=== PATIENT | female | born 1960 | race Caucasian/White ===

== ENCOUNTER 2016-12-05 15:10 | Inpatient (IN) | payer OTHER ==
[2016-12-05] MEDS ORDERED: HYDROmorphone 1 MG INJECTION IV ONE (15:24)
[2016-12-05] MEDS ORDERED: METHYLPREDNISOLONE 125 MG/2 ML VIAL IV ONE (15:48)
[2016-12-05] MEDS ORDERED: Albuterol/Ipratropium Neb 3 ML NEB NEB ONE (15:48)
[2016-12-05 16:11] LABS: AUTOMATED BASOPHIL 0.6 % (0-2); AUTOMATED EOSINOPHIL 0.3 % (0-5); AUTOMATED LYMPH 17.2 % (17-44); AUTOMATED MONOCYTE 7.9 % (3-10); MPV 7.6 fL (7.4-10.4)
[2016-12-05 16:26] LABS: LEUKOCYTES/URINE TRACE (NEGATIVE); NITRITE/URINE NEG (NEGATIVE); RBC/URINE 0-2 (0-5); URINE OCCULT BLOOD NEG (NEG/TRACE); WBC/URINE 0-2 (0-5)
[2016-12-05] MEDS ORDERED: ASPIRIN (CHEWABLE) 81 MG TAB PO ONE (16:30)
[2016-12-05] MEDS ORDERED: LORAZEPAM 2 MG/ML VIAL IV ONE (16:30)
[2016-12-05 16:34] LABS: BLOOD UREA NITROGEN 22 MG/DL (7-17); CALCIUM 10.1 MG/DL (8.4-10.2); CALCULATED OSMOLALITY 269 MOs/Kg (270-290); CHLORIDE 99 mEq/L (98-107); CRP-QUANTITATIVE 7.2 mg/L (<10.0); GLUCOSE 102 MG/DL (70-99); SODIUM LEVEL 138 mEq/L (137-146); TOTAL PROTEIN 8.1 G/DL (6.3-8.2)
[2016-12-05 16:41] LABS: CPK TOTAL WITH POSSIBLE MB 232 IU/L (30-134)
[2016-12-05 16:56] LABS: CPKMB 3.9 ng/mL (0-4.5)
--- NOTE | 2016-12-05 17:03 | EDPRACDOC ---
- General Information Chief Complaint: Chest Pain Stated Complaint: ALEX WHIPPLE Time Seen by Provider: 12/05/16 15:24 Information Source: Patient, Family Mode of Arrival: Car Home Medications: Home Medications Levofloxacin [Levaquin] 750 mg PO .DAILY X 10D 06/24/16 Albuterol/Ipratropium Neb [Duoneb] 3 ml NEB Q6 06/27/16 Albuterol/Ipratropium Neb [Duoneb] 3 ml NEB RTQ6 #100 nebu 06/27/16 Aspirin 81 mg PO DAILYWM #100 tablet 06/27/16 Atorvastatin Calcium [Lipitor] 40 mg PO DAILY 06/27/16 Atorvastatin Calcium [Lipitor] 40 mg PO DAILY #30 tablet 06/27/16 Azithromycin [Zithromax Tri-Ion] 500 mg PO DAILY #3 tablet 06/27/16 Benzonatate [Tessalon] 100 mg PO TID PRN #30 capsule 06/27/16 Carvedilol [Coreg] 3.125 mg PO BID #60 tablet 06/27/16 Cefdinir [Omnicef] 300 mg PO BID #14 capsule 06/27/16 Lisinopril/Hydrochlorothiazide [Lisinopril-Hctz 10-12.5 mg Tab] 1 tab PO DAILY # 30 06/27/16 Prednisone [Sterapred DS 10 mg/12 day pack] 48 tab PO DIR #1 pack 06/27/16 Probiotic Blend [Tammie Q] 1 tab PO BIDLS #20 tablet 06/27/16 Allergies/Adverse Reactions: Allergies Allergy/AdvReac Type Severity Reaction Status Date / Time No Known Allergies Allergy Verified 12/05/16 15:19 - History of Present Illness Onset: 2 days Chest Pain Location: Reports: Substernal Pain Radiation: Reports: None Symptoms Occur: Reports: Gradually, At Rest, With light exertion Cardiac Risk Factors: Reports: Smoker (FORMER) Cardiac History of: Reports: None. Denies: Similar Pain in Past PE Risk Factors: Reports: None Prehospital Care: Reports: None Pain Came On: Reports: Gradually Pain Status: Present Now Pain Description: Reports: Pressure, Aching Pain Worsens With: Reports: Nothing Pain Improves With: Reports: Nothing Associated Signs and Symptoms: Reports: SOB, Palpitations (HEART RACING), Other (NEAR PANIC B/C OF FEELING). Denies: Diaphoretic, Abdominal Pain, Nausea, Vomiting, Calf Pain or Swelling, Chest Rash Other History: COUGH, RUNNY NOSE, SINUS PRESSURE AND PAIN, LEFT EAR STOPPED UP FOR APPROXIMATELY 8 DAYS. HAS SEEN URGENT CARE PLACED ON CEFDINIR. DID NOT IMPROVE. HAS SEEN PCP AND BEEN PLACED ON MOXIFLOXACIN. ALSO TAKE CHERTUSSIN AC. ED Past Medical History - History Reviewed Yes Nurses notes reviewed and agree except as marked - Patient Medical History Cardiac History: Reports: Hypertension (diagnosed urgent care 06/24/16.), Hypercholesterolemia Psychological History: Denies: Depression, Substance Use Disorder - Social Medical History Smoking Status: Never smoker Social History: Denies: Substance Use Disorder EDM Review of Systems - Review of Systems ROS Negative Except as Marked: Yes All systems reviewed and were negative except as marked - Physical Exam Constitutional: Alert (Awake), No apparent distress Oriented to: Time, Person, Place Last recorded Vital Signs: Last Vital Signs Temp 97.6 F 12/05/16 15:19 Pulse 74 12/05/16 16:36 Resp 21 12/05/16 16:36 BP 127/69 12/05/16 16:36 Pulse Ox 97 12/05/16 16:36 Oxygen Pulse Oxygen Saturation 97 O2 Device Room Air Oxygen Flow Rate Fraction of Inspired Oxygen ( FIO2) - HEENT Head: Normal ( normocephalic) Eye Exam: Normal (PERRL, EOMI, Sclera white) Oropharynx: Normal (Pharynx:Moist without exudate,Gums-no swelling) Tympanic Membrane: Normal ENT EAC: Normal TMJ: Normal Nose: No Symptoms Reported (septum midline) Neck: Normal (FROM, trachea at midline) - Respiratory/Cardiovascular Respiratory: Normal - CTA (BBS clear to auscultation without adventitious sounds ), Diminished. negative: Accessory Muscle Use, Rales, Rhonchi, Tachypnea, Wheezes Cardiovascular: Normal (RRR without murmur, gallop or rub) - GI Auscultation: Normal (NABS) Palpation: Normal (Soft,No rebound or guarding, non distended) Tenderness: Non tender Burgess's Sign: Negative - Musculoskeletal Back: Normal (Non-Tender) Extremities: Normal (Normal tone, Pulses 2+ No cyanosis or edema, FROM) - Integumentary Skin: Normal, Warm, Dry Lymphatics: Normal (no adenopathy) - Neurologic Memory Impaired: Normal Motor Function: Normal (Normal tone, Pulses 2+ No cyanosis or edema, FROM) Cranial Nerve: Normal (CN II-X11 intact sensation, strength 5/5) Cerebellar: Normal Mood Description: Normal Perception: Normal ED Chest Pain Exam - Respiratory/Cardiovascular Respiratory: Normal - CTA (clear to auscultation without adventitious sounds) Cardiovascular/Chest: Normal (RRR without murmur, gallop or rub) Radial Pulse: Normal Femoral Pulse: Normal Pedal Pulse: Normal Carotid Arteries: Normal Edema: 5 Chest Palpation: Normal (No chest tenderness) - Action ASA given in the ED: Yes - Results 12/05/16 15:57 12/05/16 15:57 WBC 11.6 xk/uL (3.8-10.8) H 12/05/16 15:57 RBC 4.40 xM/uL (4.20-5.40) 12/05/16 15:57 Hgb 13.1 g/dL (12.0-16.0) 12/05/16 15:57 Hct 39.6 % (36-47) 12/05/16 15:57 MCV 90 fL (81-99) 12/05/16 15:57 MCH 29.7 pg (27-32) 12/05/16 15:57 MCHC 33.0 g/dl (33-36) 12/05/16 15:57 RDW 14.0 % (11.5-14.5) 12/05/16 15:57 Plt Count 347 xk/uL (130-400) 12/05/16 15:57 MPV 7.6 fL (7.4-10.4) 12/05/16 15:57 Neut % (Auto) 74.0 % (45-76) 12/05/16 15:57 Lymph % (Auto) 17.2 % (17-44) 12/05/16 15:57 Grand % (Auto) 7.9 % (3-10) 12/05/16 15:57 Eos % (Auto) 0.3 % (0-5) 12/05/16 15:57 Baso % (Auto) 0.6 % (0-2) 12/05/16 15:57 Absolute Neuts (auto) 8.58 xk/uL (1.7-8.2) H 12/05/16 15:57 Absolute Lymphs (auto) 1.97 xk/uL (0.65-4.75) 12/05/16 15:57 Sodium 138 mEq/L (137-146) 12/05/16 15:57 Potassium 3.6 mEq/L (3.5-5.1) 12/05/16 15:57 Chloride 99 mEq/L (98-107) 12/05/16 15:57 Carbon Dioxide 25 mMOL/L (22-33) 12/05/16 15:57 Anion Gap 18 mEq/L (8-16) H 12/05/16 15:57 BUN 22 MG/DL (7-17) H 12/05/16 15:57 Creatinine 1.20 MG/DL (0.52-1.04) H 12/05/16 15:57 Estimated GFR (MDRD) 46 mL/min (>=60) L 12/05/16 15:57 Glucose 102 MG/DL (70-99) H 12/05/16 15:57 Calculated Osmolality 269 MOs/Kg (270-290) L 12/05/16 15:57 Lactic Acid 1.0 mEq/L (0.7-2.1) 12/05/16 15:57 Calcium 10.1 MG/DL (8.4-10.2) 12/05/16 15:57 Total Bilirubin 0.7 MG/DL (0.2-1.3) 12/05/16 15:57 AST 25 IU/L (14-36) 12/05/16 15:57 ALT 45 IU/L (9-52) 12/05/16 15:57 Alkaline Phosphatase 79 IU/L (38-126) 12/05/16 15:57 Creatine Kinase 232 IU/L (30-134) H 12/05/16 15:57 CK-MB (CK-2) 3.9 ng/mL (0-4.5) 12/05/16 15:57 Troponin I < 0.01 ng/mL (<.04) 12/05/16 15:57 C-Reactive Prot, Quant 7.2 mg/L (<10.0) 12/05/16 15:57 Dlh-N-Nzxfsgpffze Pept 166 pg/mL (0-900) 12/05/16 15:57 Total Protein 8.1 G/DL (6.3-8.2) 12/05/16 15:57 Albumin 4.5 G/DL (3.5-5.0) 12/05/16 15:57 Urine Color Yellow 12/05/16 15:25 Urine Clarity Clear 12/05/16 15:25 Urine pH 7.0 (5.0-8.0) 12/05/16 15:25 Ur Specific [place] 1.010 (1.003-1.035) 12/05/16 15:25 Urine Protein Neg (NEG/TRACE) 12/05/16 15:25 Urine Glucose (UA) Neg (NEGATIVE) 12/05/16 15:25 Urine Ketones Neg (NEGATIVE) 12/05/16 15:25 Urine Occult Blood Neg (NEG/TRACE) 12/05/16 15:25 Urine Nitrite Neg (NEGATIVE) 12/05/16 15:25 Urine Bilirubin Neg (NEGATIVE) 12/05/16 15:25 Urine Urobilinogen <2.0 MG/DL (0-1) 12/05/16 15:25 Ur Leukocyte Esterase Trace (NEGATIVE) H 12/05/16 15:25 Urine RBC 0-2 (0-5) 12/05/16 15:25 Urine WBC 0-2 (0-5) 12/05/16 15:25 Ur Epithelial Cells 1+ 12/05/16 15:25 Urine Bacteria Few (NEG/FEW) 12/05/16 15:25 Hyaline Casts 2-5 (0-2) H 12/05/16 15:25 Urine Mucus Occ (NEG/OCC) 12/05/16 15:25 Lab Results 12/05/16 12/05/16 12/05/16 15:57 15:57 15:57 WBC 11.6 H RBC 4.40 Hgb 13.1 Hct 39.6 MCV 90 MCH 29.7 MCHC 33.0 RDW 14.0 Plt Count 347 MPV 7.6 Neut % (Auto) 74.0 Lymph % (Auto) 17.2 Grand % (Auto) 7.9 Eos % (Auto) 0.3 Baso % (Auto) 0.6 Absolute Neuts (auto) 8.58 H Absolute Lymphs (auto) 1.97 Sodium 138 Potassium 3.6 Chloride 99 Carbon Dioxide 25 Anion Gap 18 H BUN 22 H Creatinine 1.20 H Estimated GFR (MDRD) 46 L Glucose 102 H Calculated Osmolality 269 L Lactic Acid 1.0 Calcium 10.1 Total Bilirubin 0.7 AST 25 ALT 45 Alkaline Phosphatase 79 Creatine Kinase 232 H CK-MB (CK-2) 3.9 Troponin I < 0.01 C-Reactive Prot, Quant 7.2 Gti-L-Gxrptzagicz Pept 166 Total Protein 8.1 Albumin 4.5 Urine Color Urine Clarity Urine pH Ur Specific [place] Urine Protein Urine Glucose (UA) Urine Ketones Urine Occult Blood Urine Nitrite Urine Bilirubin Urine Urobilinogen Ur Leukocyte Esterase Urine RBC Urine WBC Ur Epithelial Cells Urine Bacteria Hyaline Casts Urine Mucus 12/05/16 15:25 WBC RBC Hgb Hct MCV MCH MCHC RDW Plt Count MPV Neut % (Auto) Lymph % (Auto) Grand % (Auto) Eos % (Auto) Baso % (Auto) Absolute Neuts (auto) Absolute Lymphs (auto) Sodium Potassium Chloride Carbon Dioxide Anion Gap BUN Creatinine Estimated GFR (MDRD) Glucose Calculated Osmolality Lactic Acid Calcium Total Bilirubin AST ALT Alkaline Phosphatase Creatine Kinase CK-MB (CK-2) Troponin I C-Reactive Prot, Quant Epp-N-Brekiuvwixu Pept Total Protein Albumin Urine Color Yellow Urine Clarity Clear Urine pH 7.0 Ur Specific [place] 1.010 Urine Protein Neg Urine Glucose (UA) Neg Urine Ketones Neg Urine Occult Blood Neg Urine Nitrite Neg Urine Bilirubin Neg Urine Urobilinogen <2.0 Ur Leukocyte Esterase Trace H Urine RBC 0-2 Urine WBC 0-2 Ur Epithelial Cells 1+ Urine Bacteria Few Hyaline Casts 2-5 H Urine Mucus Occ Laboratory Results - last 24 hr 12/05/16 12/05/16 12/05/16 15:25 15:57 15:57 WBC RBC Hgb Hct MCV MCH MCHC RDW Plt Count MPV Neut % (Auto) Lymph % (Auto) Grand % (Auto) Eos % (Auto) Baso % (Auto) Absolute Neuts (auto) Absolute Lymphs (auto) Sodium 138 Potassium 3.6 Chloride 99 Carbon Dioxide 25 Anion Gap 18 H BUN 22 H Creatinine 1.20 H Estimated GFR (MDRD) 46 L Glucose 102 H Calculated Osmolality 269 L Lactic Acid 1.0 Calcium 10.1 Total Bilirubin 0.7 AST 25 ALT 45 Alkaline Phosphatase 79 Creatine Kinase 232 H CK-MB (CK-2) 3.9 Troponin I < 0.01 C-Reactive Prot, Quant 7.2 Ssm-I-Zgwsvdkatvs Pept 166 Total Protein 8.1 Albumin 4.5 Urine Color Yellow Urine Clarity Clear Urine pH 7.0 Ur Specific [place] 1.010 Urine Protein Neg Urine Glucose (UA) Neg Urine Ketones Neg Urine Occult Blood Neg Urine Nitrite Neg Urine Bilirubin Neg Urine Urobilinogen <2.0 Ur Leukocyte Esterase Trace H Urine RBC 0-2 Urine WBC 0-2 Ur Epithelial Cells 1+ Urine Bacteria Few Hyaline Casts 2-5 H Urine Mucus Occ 12/05/16 15:57 WBC 11.6 H RBC 4.40 Hgb 13.1 Hct 39.6 MCV 90 MCH 29.7 MCHC 33.0 RDW 14.0 Plt Count 347 MPV 7.6 Neut % (Auto) 74.0 Lymph % (Auto) 17.2 Grand % (Auto) 7.9 Eos % (Auto) 0.3 Baso % (Auto) 0.6 Absolute Neuts (auto) 8.58 H Absolute Lymphs (auto) 1.97 Sodium Potassium Chloride Carbon Dioxide Anion Gap BUN Creatinine Estimated GFR (MDRD) Glucose Calculated Osmolality Lactic Acid Calcium Total Bilirubin AST ALT Alkaline Phosphatase Creatine Kinase CK-MB (CK-2) Troponin I C-Reactive Prot, Quant Gmz-V-Omzkzgatxag Pept Total Protein Albumin Urine Color Urine Clarity Urine pH Ur Specific [place] Urine Protein Urine Glucose (UA) Urine Ketones Urine Occult Blood Urine Nitrite Urine Bilirubin Urine Urobilinogen Ur Leukocyte Esterase Urine RBC Urine WBC Ur Epithelial Cells Urine Bacteria Hyaline Casts Urine Mucus Laboratory Results 12/05/16 15:57 12/05/16 15:57 - EKG EKG #1 EKG Time: 15:18 -: Yes EKG interpreted by me Rate: bpm: 93 [place]: Normal Rhythm: NSR Block: None Hypertrophy: None ST: New, Inf, Lat, Ischemia Comparison: 06/25/16 (NEW INF AND LAT ST DEP) EKG #2 EKG Time: 16:45 -: Yes EKG interpreted by in Rate: bpm: 69 [place]: Normal Rhythm: NSR Block: None Hypertrophy: None ST: Nonsp Comments: IMPROVED - Diagnostic Imaging Chest Image interpreted by: Radiologist Patient Name: JOSE BUCKNER LOC: ED : 1960 AGE: 56 Order Date:12/05/16 Date of Service:06/14 Report # [id number] Ord Physician: Gloria Díaz MD Exam # [id number] Emergency Physician: Gloria Díaz MD Exam(s): [id number] RAD/DG CHEST 2V CLINICAL DATA: Shortness of breath cough congestion for several days EXAM: CHEST 2 VIEW COMPARISON: 06/24/2016 FINDINGS: Heart size and vascular pattern are normal. No infiltrate consolidation effusion or pneumothorax. IMPRESSION: No active cardiopulmonary disease. Electronically Signed By: Kaleb Bauman M.D. On: 12/05/2016 17:01 Electronically Signed By: Kaleb Bauman MD Electronically Signed Date/Time: 704 Dictate Date/Time: 12/05/161699 Technologist: Cherelle Powell Transcribed By: Zenaida Transcribed Date/Time: 12/05/16 170 - Departure Condition: Stable Final Diagnosis: Abnormal EKG Chest pain Qualifiers: Chest pain type: other chest pain Qualified Code(s): R07.89 - Other chest pain Dyspnea Qualifiers: Dyspnea type: shortness of breath Qualified Code(s): R06.02 - Shortness of breath Instructions: Chest Pain (ED), Chest Wall Pain Education/Counseling Given To: Patient, Family Member Education/Counseling Given Regarding: Diagnosis, Treatment, Prognosis Referrals: Nikolai Gant MD [Primary Care Provider] - One Week Decision to Admit Time: 17:06 Decision to admit date: 12/05/16 Decision to admit: from ED - Physician Consulted Hospitalist Time Called: 17:06 Provider Called: Nilson Molina Time [employer] Team Leader Returned Call: 17:06
[2016-12-05] MEDS ORDERED: Enoxaparin 1 mg per kg per dose SQ ONE (17:06)
[2016-12-05] MEDS ORDERED: ACETAMINOPHEN 325 MG SUPP PR PRN (17:20)
[2016-12-05] MEDS ORDERED: BENZONATATE 100 MG PERLES PO PRN (17:20)
[2016-12-05] MEDS ORDERED: SENNA CONCENTRATE TAB PO PRN (17:20)
[2016-12-05] MEDS ORDERED: ACETAMINOPHEN 325 MG/TAB TABLET PO PRN (17:20)
[2016-12-05] MEDS ORDERED: TUSSIONEX 5 ML ORAL SYRINGE PO PRN (17:20)
[2016-12-05] MEDS ORDERED: BISACODYL 10 MG SUPP PR PRN (17:20)
[2016-12-05] MEDS ORDERED: PROMETHAZINE 25 MG/ML VIAL IV PRN (17:20)
--- NOTE | 2016-12-05 17:54 | HISTPHYS ---
- Chief Complaint Dry cough slight fever and chest pain with cough - History of Present Illness Patient very pleasant 56-year-old white female who comes in the emergency room today complaining of dry cough, shortness breath, excessive belching, rapid heartbeat, sinus infection, chest tightness palpitations mild feverish sensation and multiple recent antibiotics without any improvement of her symptomatology. She states she has had some nasal drainage of thick white greenish attended material from the back of her sinuses down into her chest causing her to have a cough. She had a low-grade fever and had seen Dr. Gant who started her on Ceftin which she took for 4 days without any improvement she was then started on moxifloxacin for the next several days without any improvement whatsoever. She was also recently given Afrin followed by Flonase to help open up her sinuses. She states that the Afrin helped a little but unfortunately Flonase had no affect but states that the Flonase was started after the Afrin course had ceased. She tells me a week ago she had a fever over 100 F. she also says last 2 nights she had pacing in the chest. Belching has been occurring for the past several months which prompted her to see Dr. Momin who performed a colonoscopy an EGD reportedly negative. I took care of her last year in May with pneumonia and she states lot of her symptoms are similar that which she experience then. - Medical History Cardiac History: Reports: No Significant History, Hypertension (diagnosed urgent care 06/24/16.), Hypercholesterolemia Respiratory History: Reports: Emphysema (Emphysema noted on chest x-ray by me) GI/ History: Reports: No Significant History Musculoskeletal History: Reports: No Significant History Systemic History: Reports: No Significant History Neurological History: Reports: No Significant History Psychological History: Denies: Depression, Substance Use Disorder - Medictions/Allergies Allergies No Known Allergies Allergy (Verified 12/05/16 15:19) Current Medication List: Reviewed Home Medications Levofloxacin [Levaquin] 750 mg PO .DAILY X 10D 06/24/16 Albuterol/Ipratropium Neb [Duoneb] 3 ml NEB Q6 06/27/16 Albuterol/Ipratropium Neb [Duoneb] 3 ml NEB RTQ6 #100 nebu 06/27/16 Aspirin 81 mg PO DAILYWM #100 tablet 07/30/16 Atorvastatin Calcium [Lipitor] 40 mg PO DAILY 06/27/16 Atorvastatin Calcium [Lipitor] 40 mg PO DAILY #30 tablet 06/27/16 Azithromycin [Zithromax Tri-Ion] 500 mg PO DAILY #3 tablet 06/27/16 Benzonatate [Tessalon] 100 mg PO TID PRN #30 capsule 06/27/16 Carvedilol [Coreg] 3.125 mg PO BID #60 tablet 06/27/16 Cefdinir [Omnicef] 300 mg PO BID #14 capsule 06/27/16 Lisinopril/Hydrochlorothiazide [Lisinopril-Hctz 10-12.5 mg Tab] 1 tab PO DAILY # 30 06/27/16 Prednisone [Sterapred DS 10 mg/12 day pack] 48 tab PO DIR #1 pack 06/27/16 Probiotic Blend [Tammie Q] 1 tab PO BIDLS #20 tablet 06/27/16 - Family History Reports: No Significant History (She is adopted and has no family history that she is aware of) - Social History Travel Outside of [place] in the Last 3 Months?: No Lives: with Spouse Smoking Status: Never smoker Social History: Denies: Alcohol Use, Substance Use Disorder - Review of Systems Constitutional: Chills, Fever, Fatigue Eyes: Pain (Fullness in her sinuses and postnasal drip) Ears: Pain (Fullness in her sinuses and postnasal drip) Nose: Congestion, Other (Sinus infection symptoms) Mouth: No Symptoms Reported (No oropharyngeal lesions or erythema) Throat/Neck: No Symptoms Reported (No throat pain or swelling.No oropharyngeal lesions or erythema.) Respiratory: Cough (Dry nonproductive). negative: Sputum Cardiovascular: Chest Pain (Pleuritic), Palpitations Gastrointestinal: Other (Excessive belching prompting the EGD and colonoscopy [address] Momin which were reportedly negative) Genitourinary: No Symptoms Reported (No dysuria or hematuria.) Neurological: No Symptoms Reported (No headache, dizziness, seizures, or focal weakness.) Musculoskeletal:: No Symptoms Reported Integumentary: No Symptoms Reported (no rashes or lesions) Allergic/Immunologic: No Symptoms Reported (no rashes or lesions) Hematologic: No Symptoms Reported (No chronic anemia, bleeding, or easy bruising.), Other (Lymphatics- no lymph node swelling or pain.) Endocrine: No Symptoms Reported (No thyroid issues, polyuria, or polydipsia.) Psychiatric: No Symptoms Reported (Fully oriented, with normal and appropriate affect.) - Physical Exam Vital Signs: Initial Vitals Temperature 97.6 F 12/05/16 15:19 Pulse Rate 97 12/05/16 15:19 Respiratory Rate 22 12/05/16 15:19 Blood Pressure 173/80 12/05/16 15:19 Pulse Oxygen Saturation 94 12/05/16 15:19 Constitutional: Alert (Awake, Fully oriented. Normal and appropriate affect.Well appearing. Well nourished.), No apparent distress Oriented to: Time, Person, Place - HEENT Head: Normal (normocephalic, atraumatic.), Other (No cervical lymphadenopathy. No supraclavicular lymphadenopathy. Neck: No palpable mass, supple , trachea midline.) Eye: Normal (pupils equal, reactive to light, and round; EOMI, Sclera white) Oropharynx: Normal (Pharynx: Moist without exudate,Gums-no swelling, No oropharyngeal lesions or erythema, Mucous membranes are dry.) ENT EAC: Normal (No oropharyngeal lesions or erythema. Mucous membranes are dry. ) TMJ: Normal Nose: No Symptoms Reported (septum midline, Nares patent, without discharge or bleeding.) Respiratory: Normal - CTA (Clear to auscultation bilaterally. No wheezing, rales , rhonchi. Chest wall movements are symmetric. No use of accessory muscles to breathe.) Cardiovascular: Normal (RRR , Normal S1, S2. No murmurs, rubs, or gallops. PMI non-displaced. Carotids: no carotid bruits. No bradycardia or tachycardia. DP pulses 2+ bilaterally.) - GI Auscultation: Normal (normal active sounds) Palpation: Normal (Soft,non distended,nontender. No hepatosplenomegaly.) Tenderness: Non tender (No rebound or guarding) Burgess's Sign: Negative - Musculoskeletal Back: Normal (Non-Tender) Extremities: Normal (Normal tone, DP pulses 2+ bilaterally, No cyanosis or edema bilaterally, FROM bilaterally.) Spine: non-tender. negative: muscle spasm, painful range of motion - Integumentary Skin: Normal (Clean, dry, and intact. No rashes. No lesions.) Lymphatics: Normal (No cervical lymphadenopathy. No supraclavicular lymphadenopathy.) - Neurologic Memory Impaired: Normal Motor Function: Normal (Motor 5/5 throughout.Normal tone, Pulses 2+ No cyanosis or edema, FROM) Cranial Nerve: Normal (CN II-XII intact sensation, strength 5/5) Cerebellar: Normal (Babinski: toes downgoing bilaterally. Intact Finger to nose. Sensory grossly intact to light touch. Intact rapid alternating movements bilaterally. No pronator drift.) Mood Description: Normal (Fully oriented. Normal and appropriate affect.) Thought: Coherent Perception: Normal (Normal and appropriate affect.) - Focused CV Perfusion Exam Vital Signs: Last Vital Signs Temp 97.6 F 12/05/16 15:19 Pulse 74 12/05/16 16:36 Resp 21 12/05/16 16:36 BP 127/69 12/05/16 16:36 Pulse Ox 97 12/05/16 16:36 - Lab Results 12/05/16 15:57 12/05/16 15:57 Laboratory Results - last 24 hr 12/05/16 12/05/16 12/05/16 15:25 15:57 15:57 WBC RBC Hgb Hct MCV MCH MCHC RDW Plt Count MPV Neut % (Auto) Lymph % (Auto) [place] % (Auto) Eos % (Auto) Baso % (Auto) Absolute Neuts (auto) Absolute Lymphs (auto) Sodium 138 Potassium 3.6 Chloride 99 Carbon Dioxide 25 Anion Gap 18 H BUN 22 H Creatinine 1.20 H Estimated GFR (MDRD) 46 L Glucose 102 H Calculated Osmolality 269 L Lactic Acid 1.0 Calcium 10.1 Total Bilirubin 0.7 AST 25 ALT 45 Alkaline Phosphatase 79 Creatine Kinase 232 H CK-MB (CK-2) 3.9 Troponin I < 0.01 C-Reactive Prot, Quant 7.2 Psk-M-Hgfvefohltm Pept 166 Total Protein 8.1 Albumin 4.5 Urine Color Yellow Urine Clarity Clear Urine pH 7.0 Ur Specific [place] 1.010 Urine Protein Neg Urine Glucose (UA) Neg Urine Ketones Neg Urine Occult Blood Neg Urine Nitrite Neg Urine Bilirubin Neg Urine Urobilinogen <2.0 Ur Leukocyte Esterase Trace H Urine RBC 0-2 Urine WBC 0-2 Ur Epithelial Cells 1+ Urine Bacteria Few Hyaline Casts 2-5 H Urine Mucus Occ 12/05/16 15:57 WBC 11.6 H RBC 4.40 Hgb 13.1 Hct 39.6 MCV 90 MCH 29.7 MCHC 33.0 RDW 14.0 Plt Count 347 MPV 7.6 Neut % (Auto) 74.0 Lymph % (Auto) 17.2 [place] % (Auto) 7.9 Eos % (Auto) 0.3 Baso % (Auto) 0.6 Absolute Neuts (auto) 8.58 H Absolute Lymphs (auto) 1.97 Sodium Potassium Chloride Carbon Dioxide Anion Gap BUN Creatinine Estimated GFR (MDRD) Glucose Calculated Osmolality Lactic Acid Calcium Total Bilirubin AST ALT Alkaline Phosphatase Creatine Kinase CK-MB (CK-2) Troponin I C-Reactive Prot, Quant Qll-Q-Uooccsaghvp Pept Total Protein Albumin Urine Color Urine Clarity Urine pH Ur Specific [place] Urine Protein Urine Glucose (UA) Urine Ketones Urine Occult Blood Urine Nitrite Urine Bilirubin Urine Urobilinogen Ur Leukocyte Esterase Urine RBC Urine WBC Ur Epithelial Cells Urine Bacteria Hyaline Casts Urine Mucus - Diagnostic Findings EKG sinus rhythm inferior lateral T-wave inversion - Assessment (1) Bronchitis J40 - BRONCHITIS, NOT SPECIFIED ACUTE OR CHRONIC Acute Present on Admission: Yes Chest x-ray fails to show any acute infiltrate but she does have evidence of emphysema with flattening of the diaphragms and hyperinflation. Failure to improve with multiple antibiotics is documented. Will need parental antibiotics for this complex infection. Will start on Rocephin Zithromax along with probiotic and steroids for multiple effects. (2) Sinusitis J32.9 - CHRONIC SINUSITIS, UNSPECIFIED Acute Present on Admission: Yes Qualifiers: Sinusitis location: other Chronicity: chronic Qualified Code(s): J32.8 - Other chronic sinusitis Likely will need prolonged course of antibiotics as well as nasal steroids after initial Afrin getting the medication in her sinuses. If improvement inadequate may need ENT referral. (3) Chest pain R07.9 - CHEST PAIN, UNSPECIFIED Acute Present on Admission: Yes Qualifiers: Chest pain type: chest pain on breathing Qualified Code(s): R07.1 - Chest pain on breathing Chest pain related to pneumonia. Adopted so no known family history. Former smoker quit 12/2015. CPK and troponins are normal Give patient oxygen, aspirin. (4) Palpitations R00.2 - PALPITATIONS Acute Present on Admission: Yes Telemetry. (5) Hyperlipidemia E78.5 - HYPERLIPIDEMIA, UNSPECIFIED Chronic Present on Admission: Yes Qualifiers: Hyperlipidemia type: mixed hyperlipidemia Qualified Code(s): E78.2 - Mixed hyperlipidemia Already started on Lipitor therapy. (6) Hypertension I10 - ESSENTIAL (PRIMARY) HYPERTENSION Chronic Present on Admission: Yes Qualifiers: Hypertension type: essential hypertension Qualified Code(s): I10 - Essential (primary) hypertension lisinopril HCTZ and Coreg. (7) Abnormal EKG R94.31 - ABNORMAL ELECTROCARDIOGRAM [ECG] [EKG] Acute Present on Admission: Yes T-wave inversion inferior laterally so far troponins are negative and will keep an eye on this. More troponins are ordered but feel that her symptoms are more consistent with her bronchopneumonia and sinusitis infection instead ischemia. Case Care Discussed with: Patient, Nursing Staff Total Time: One Hour 3 minutes Critical Care: No Code: [id number]
[2016-12-05] MEDS ORDERED: CEFTRIAXONE 1 GM in D5W 100 ML IV SCH (18:00)
[2016-12-05] MEDS ORDERED: ENOXAPARIN 40 MG/0.4 ML PFS SQ SCH (18:00)
[2016-12-05] MEDS ORDERED: ENOXAPARIN 100 MG PFS SQ ONE (18:00)
[2016-12-05] MEDS: PROBIOTIC BLEND TAB PO SCH ×3 (18:21→19:02)
[2016-12-05] MEDS: NITROGLYCERINE 0.4 MG TAB SL SCH ×2 (19:02→21:37)
--- NOTE | 2016-12-05 19:06 | DIRPT ---
CLINICAL DATA: Chronic sinusitis. EXAM: CT PARANASAL SINUS LIMITED WITHOUT CONTRAST TECHNIQUE: Non-contiguous multidetector CT images of the paranasal sinuses were obtained in a single plane without contrast. COMPARISON: None. FINDINGS: There is moderate bilateral mucosal thickening involving the maxillary sinuses. Mucosa within the right maxillary sinus measures up to 1.1 cm. The mucosa within the left maxillary sinus measures up to 1.4 cm. No periosteal thickening identified. There is moderate to marked opacification of the ethmoid air cells. Mild mucosal thickening and partial opacification of the frontal sinus noted. The mastoid air cells are clear. The visualized intracranial contents are unremarkable. IMPRESSION: 1. Moderate lundy sinus inflammation. Electronically Signed By: Milli Macdonald M.D. On: 12/05/2016 19:03
[2016-12-05] MEDS ORDERED: AZITHROMYCIN 500 MG in D5W 250 ML IV SCH (20:00)
[2016-12-05] MEDS: Albuterol/Ipratropium Neb 3 ML NEB NEB SCH (20:44)
[2016-12-05] MEDS: OXYMETAZOLINE 0.05% NASAL SPRAY NAS SCH (21:39)
[2016-12-05] MEDS: METHYLPREDNISOLONE 125 MG/2 ML VIAL IV SCH (21:40)
[2016-12-05] MEDS: CARVEDILOL 3.125 MG TAB PO SCH (21:40)
[2016-12-05] MEDS ORDERED: Vaccine Screening Complete SCH (22:00)
[2016-12-06] MEDS: Albuterol/Ipratropium Neb 3 ML NEB NEB SCH ×2 (01:47→08:31)
[2016-12-06] MEDS: METHYLPREDNISOLONE 125 MG/2 ML VIAL IV SCH ×2 (03:30→10:20)
[2016-12-06 05:34] VITALS: BMI 29.1
[2016-12-06 06:07] LABS: AUTOMATED BASOPHIL 0.2 % (0-2); AUTOMATED LYMPH 9.1 % (17-44); AUTOMATED MONOCYTE 1.1 % (3-10); AUTOMATED NEUTROPHIL 89.6 % (45-76); MPV 7.9 fL (7.4-10.4)
[2016-12-06 06:37] LABS: BLOOD UREA NITROGEN 22 MG/DL (7-17); CALCIUM 9.8 MG/DL (8.4-10.2); CALCULATED OSMOLALITY 274 MOs/Kg (270-290); CHLORIDE 101 mEq/L (98-107); GLUCOSE 149 MG/DL (70-99); SODIUM LEVEL 139 mEq/L (137-146)
[2016-12-06] MEDS ORDERED: OXYCODONE HCL 5 MG TABLET PO PRN (07:46)
[2016-12-06] MEDS ORDERED: ACETAMINOPHEN 325 MG/TAB TABLET PO PRN (07:48)
[2016-12-06] MEDS: CARVEDILOL 3.125 MG TAB PO SCH (07:55)
[2016-12-06] MEDS: OXYMETAZOLINE 0.05% NASAL SPRAY NAS SCH (07:55)
[2016-12-06] MEDS: PROBIOTIC BLEND TAB PO SCH (07:56)
[2016-12-06] MEDS ORDERED: ASPIRIN 325 MG TAB PO SCH (08:00)
[2016-12-06 08:55] VITALS: BP 109/56; TEMP 97.8
[2016-12-06] MEDS ORDERED: Non-Formulary Medication ITEM (Lisinopril/Hydrochlorothiazide [Lisinopril-Hctz 10-12.5 M PO SCH (09:00)
[2016-12-06] MEDS ORDERED: ATORVASTATIN 40 MG TAB PO SCH (09:00)
[2016-12-06] MEDS ORDERED: HYDROCHLOROTHIAZIDE 12.5 MG CAP PO SCH (09:00)
[2016-12-06] MEDS ORDERED: LISINOPRIL 10 MG TAB PO SCH (09:00)
[2016-12-06 09:24] VITALS: PULSE 100
--- NOTE | 2016-12-06 10:32 | PCM.DCS92 ---
- Final/Secondary Discharge Diagnosis (1) COPD with exacerbation Acute J44.1 - CHRONIC OBSTRUCTIVE PULMONARY DISEASE W (ACUTE) EXACERBATION Present on Admission: Yes Comment: Much better. Ambulating on room air. Sats 97%. Large portion of symptoms related to sinus issues. (2) Sinusitis Acute J32.9 - CHRONIC SINUSITIS, UNSPECIFIED Present on Admission: Yes other chronic J32.8 - Other chronic sinusitis Comment: Severe on CT scan. Will need prolonged course antibiotics. Starting Flonase. Avoid antihistamines. May need outpatient referral to ENT if no better. (3) Bronchitis Acute J40 - BRONCHITIS, NOT SPECIFIED ACUTE OR CHRONIC Present on Admission: Yes Comment: Overall much better. Lungs are clear. Continue antibiotics, steroids and pulmonary toilet. (4) Chest pain Acute R07.9 - CHEST PAIN, UNSPECIFIED Present on Admission: Yes other chest pain R07.89 - Other chest pain; R07.8 - Other chest pain Comment: Atypical and likely related to respiratory issues. However she is significantly anxious about this and she was told that she had significant EKG changes in the ER. These appear to be nonspecific. Will go ahead and arrange for outpatient stress testing. (5) Hyperlipidemia Chronic E78.5 - HYPERLIPIDEMIA, UNSPECIFIED Present on Admission: Yes mixed hyperlipidemia E78.2 - Mixed hyperlipidemia Comment: Already started on Lipitor therapy. (6) Hypertension Chronic I10 - ESSENTIAL (PRIMARY) HYPERTENSION Present on Admission: Yes essential hypertension I10 - Essential (primary) hypertension Comment: lisinopril HCTZ and Coreg. Discharge Disposition: Home Discharge Condition: Improved Cognitive Discharge Status: Unimpaired Fuctional Discharge Status: Independent Physician Follow up/Referrals: Nikolai Gant MD [Primary Care Provider] - One Week (someone from the hospital will call you with a follow up appointment ) New Prescriptions: Cefdinir [Omnicef] 300 mg PO BID #28 capsule Fluticasone Propionate [Flonase Nasal [place]] 2 spray JOHN DAILY #1 each Prednisone [Sterapred DS 10 mg/12 day pack] 48 tab PO DIR #1 pack Probiotic Blend [Tammie Q] 1 tab PO BIDLS #30 tablet Discharge Home Medication List Albuterol/Ipratropium Neb [Duoneb] 3 ml NEB Q6 06/27/16 [History Confirmed 12/05 Last Taken 12/05/16 12:00] Albuterol/Ipratropium Neb [Duoneb] 3 ml NEB RTQ6 #100 nebu 06/27/16 [Rx Confirmed 12/05/16 Last Taken 12/05/16 12:00] Aspirin 81 mg PO DAILYWM #100 tablet 06/27/16 [Rx Confirmed 12/05/16 Last Taken 12/05/16 18:00] Atorvastatin Calcium [Lipitor] 40 mg PO DAILY 06/27/16 [History Confirmed Last Taken 12/05/16 08:00] Carvedilol [Coreg] 3.125 mg PO BID #60 tablet 06/27/16 [Rx Confirmed 12/05/16 Last Taken 12/05/16 08:00] Lisinopril/Hydrochlorothiazide [Lisinopril-Hctz 10-12.5 mg Tab] 1 tab PO DAILY # 30 06/27/16 [Rx Confirmed 12/05/16 Last Taken 12/05/16 08:00] Lorazepam 0.25 mg PO Q8H PRN 12/05/16 [History Confirmed 12/05/16 Last Taken 06/14 06:00] Metoclopramide HCl 5 mg PO TID 12/05/16 [History Confirmed 12/05/16 Last Taken 12/04/16 17:30] Cefdinir [Omnicef] 300 mg PO BID #28 capsule 12/06/16 [Rx Last Taken Unknown] Fluticasone Propionate [Flonase Nasal [place]] 2 spray JOHN DAILY #1 each 12/06/16 [Rx Last Taken Unknown] Prednisone [Sterapred DS 10 mg/12 day pack] 48 tab PO DIR #1 pack 12/06/16 [ Rx Last Taken Unknown] Probiotic Blend [Tammie Q] 1 tab PO BIDLS #30 tablet 12/06/16 [Rx Last Taken Unknown] O2 Device: Room Air Additional Instructions: outpatient cardiac stress test-results to DR. Nikolai Gant Diet at Discharge: Heart Healthy Activity: As Tolerated Call Office For: Worsening Symptoms - DC Summary Notes Hospital Course Note:: Discharge summary on patient named JOSE HUNG admitted to [facility] on 12/05/16 by Suresh Grijalva MD. Date of discharge is []. Ms Hung is a pleasant 56-year-old white female who presented emergency room with increasing shortness of breath, cough and congestion. She was wheezing on exam and initial chest x-ray did not show any acute abnormalities. However she did have significant distress and was having some chest tightness as well. The chest tightness was worse with cough and deep inspiration in atypical of heart disease. She did have some T-wave inversions and given her respiratory difficulty and chest pain she was admitted to the hospital for further evaluation management. She was started on IV antibiotics IV steroids and nebulizer treatments. She underwent a sinus CT scan which showed extensive lundy sinusitis. Her respiratory status stabilized and she is breathing better. She has not had any further chest pain in her cardiac enzymes were negative. She has been concerned about cardiac related issues so we will go ahead and arrange for an outpatient stress test. Because of the extensive sinus disease seen on CT scan will place her on a prolonged course of antibiotics. Will continue on steroids and started on Flonase nasal spray. We will also recommend that she discontinue use of antihistamines. If sinus symptoms persist she will need follow-up with ENT as an outpatient. At the time of discharge she is breathing better she has been up ambulating in the halls on room air and is stable for discharge home. Her lung exam is clear with no current wheezing at this time. She is to call or return with any problems. Total Time: 45 minutes - Physical Exam Vital Signs: Last Vital Signs Temp 97.8 F 12/06/16 08:54 Pulse 100 12/06/16 09:23 Resp 18 12/06/16 08:54 BP 109/56 L 12/06/16 08:54 Pulse Ox 97 12/06/16 09:35 Oxygen Pulse Oxygen Saturation 97 O2 Device Room Air Oxygen Flow Rate Fraction of Inspired Oxygen ( FIO2) Constitutional: No apparent distress, Alert (Awake, Fully oriented. Normal and appropriate affect.Well appearing. Well nourished.), Well nourished, Well appearing Oriented to: Time, Person, Place - HEENT Head: Normal (normocephalic, atraumatic.), Other (No cervical lymphadenopathy. No supraclavicular lymphadenopathy. Neck: No palpable mass, supple , trachea midline.) Eye: Normal (pupils equal, reactive to light, and round; EOMI, Sclera white) Oropharynx: Normal (Pharynx: Moist without exudate,Gums-no swelling, No oropharyngeal lesions or erythema, Mucous membranes are dry.) ENT EAC: Normal (No oropharyngeal lesions or erythema. Mucous membranes are dry. ) TMJ: Normal Nose: No Symptoms Reported (septum midline, Nares patent, without discharge or bleeding.) - Respiratory/Cardiovascular Respiratory: Normal - CTA (Clear to auscultation bilaterally. No wheezing, rales , rhonchi. Chest wall movements are symmetric. No use of accessory muscles to breathe.) Cardiovascular: Normal (RRR , Normal S1, S2. No murmurs, rubs, or gallops. PMI non-displaced. Carotids: no carotid bruits. No bradycardia or tachycardia. DP pulses 2+ bilaterally.) - GI Auscultation: Normal (normal active sounds) Palpation: Normal (Soft,non distended,nontender. No hepatosplenomegaly.) Tenderness: Non tender (No rebound or guarding) Burgess's Sign: Negative - Musculoskeletal Back: Normal (Non-Tender) Extremities: Normal (Normal tone, DP pulses 2+ bilaterally, No cyanosis or edema bilaterally, FROM bilaterally.) - Integumentary Skin: Normal (Clean, dry, and intact. No rashes. No lesions.) Lymphatics: Normal (No cervical lymphadenopathy. No supraclavicular lymphadenopathy.) - Neurologic Memory Impaired: Normal Cerebellar: Normal (Babinski: toes downgoing bilaterally. Intact Finger to nose. Sensory grossly intact to light touch. Intact rapid alternating movements bilaterally. No pronator drift.) Mood Description: Normal (Fully oriented. Normal and appropriate affect.) Thought: Coherent Perception: Normal (Normal and appropriate affect.)
[2016-12-06] MEDS ORDERED: ENOXAPARIN 40 MG/0.4 ML PFS SQ SCH (18:00)
== END 2016-12-06 11:24 | disposition home or self-care (01) | DRG 192 ==
LOC: ED 15:10 → PCU 17:34
PROVIDERS: ADMIT Internal Medicine; ATTEND Hospitalist
DX: J44.1 Chronic obstructive pulmonary disease with (acute) exacerbation (principal); I10 Essential (primary) hypertension; J32.8 Other chronic sinusitis; R07.9 Chest pain, unspecified; E78.2 Mixed hyperlipidemia; Z79.899 Other long term (current) drug therapy; Z79.82 Long term (current) use of aspirin; R00.2 Palpitations; R94.31 Abnormal electrocardiogram [ECG] [EKG]
CPT/HCPCS: 36415; 71020; 76380; 80048; 80053; 81001; 82043; 82550; 82553; 83605; 83880; 84443; 84484; 85025; 86140; 87040; 93005; 94640; 96372; 96374; 96375; 98960; 99285; G0237; J0456; J0696; J1650; J2060; J2930; J3490; J7060; J7070; J7620